=== PATIENT | female | born 1985 | race African-American/Black ===

== ENCOUNTER 2022-06-20 12:55 | Emergency (ER) | payer OTHER ==
[2022-06-20 13:31] LABS: #Basophils 0.1 10x3/uL (0.0-0.2); #Monocytes 0.5 10x3/uL (0.0-1.1); #Neutrophils 2.6 10x3/uL (1.5-8.4); %Basophils 0.7 % (0.0-2.0); %Eosinophils 13.2 % (0.0-6.0); %Lymphocytes 43.2 % (18.0-47.0); %Monocytes 7.4 % (0.0-10.0); %Neutrophils 35.4 % (40.0-75.0); Hemoglobin 12.7 g/dL (12.0-15.5); Mean Corpuscular HGB CONC 33.3 g/dL (32.0-36.0); Mean Corpuscular Hemoglobin 29.7 pg (27.0-33.0); Mean Platelet Volume 8.8 fl (7.4-10.4); Platelet Count 344 10x3/uL (150-450); RBC Distribution Width 12.8 % (11.5-14.5); Red Blood Cell (RBC) Count 4.28 10x6/uL (3.90-5.03); White Blood Cell (WBC) Count 7.3 10x3/uL (3.5-10.5)
[2022-06-20 13:46] LABS: Bilirubin Neg (Negative); Blood, Urine Negative (Negative); Clarity Clear (Clear); Glucose, Urine (Dipstick) Normal (Negative); Ketone, Urine Negative (Negative); Leukocyte Negative (Negative); Nitrite Negative (Negative); Protein, Urine (Dipstick) Negative (Neg-Trace); Urobilinogen Normal mg/dL (Less than 2)
[2022-06-20 13:48] LABS: ALT (SGPT) 15 U/L (8-55); AST (SGOT) 18 U/L (5-34); Albumin 4.4 g/dL (3.5-5.0); Alkaline Phosphatase 46 U/L (40-110); Anion Gap 11 mmol/L (10-20); BUN (Urea Nitrogen) 8 mg/dL (7.0-18.7); Bilirubin, Total 0.5 mg/dL (0.2-1.2); Calc. Creatinine Clearance 0 mL/min (70-130); Calcium 9.6 mg/dL (7.8-10.44); Carbon Dioxide 22 mmol/L (22-29); Chloride 105 mmol/L (98-107); Estimated GFR 109; Globulin 3.2 g/dL (2.4-3.5); Glucose 83 mg/dL (70-105); Lipase 27 U/L (8-78); Potassium 3.9 mmol/L (3.5-5.1); Protein, Total 7.6 g/dL (6.0-8.3); Sodium 134 mmol/L (136-145)
[2022-06-23] MEDS ORDERED: Ondansetron PF 4 MG/2 ML Vial ONE (08:30)
[2022-06-23] MEDS ORDERED: Dexamethasone 20 MG/5 ML VIAL ONE (08:31)
[2022-06-23] MEDS ORDERED: ePHEDrine Sulfate 50 MG/10 ML VIAL ONE (08:42)
[2022-06-23] MEDS ORDERED: Ketorolac Tromethamine 30 MG/ML VIAL ONE (08:44)
[2022-06-23] MEDS ORDERED: Glycopyrrolate 0.2 MG/ML 5 ML SYRINGE ONE (08:44)
== END 2022-06-20 16:38 | disposition home or self-care (01) ==
LOC: CSHERS 12:55
DX: O26.891 Other specified pregnancy related conditions, first trimester (principal); R10.12 Left upper quadrant pain; Z3A.08 8 weeks gestation of pregnancy
CPT/HCPCS: 36415; 80053; 81003; 83690; 84702; 85025; 94760

== ENCOUNTER 2022-10-12 17:41 | Emergency (ER) | payer OTHER ==
[2022-10-12 18:40] LABS: #Basophils 0.1 10x3/uL (0.0-0.2); #Eosinphils 0.2 10x3/uL (0.0-0.5); #Monocytes 0.9 10x3/uL (0.0-1.1); #Neutrophils 8.1 10x3/uL (1.5-8.4); %Basophils 0.4 % (0.0-2.0); %Eosinophils 1.4 % (0.0-6.0); %Lymphocytes 25.6 % (18.0-47.0); %Monocytes 7.4 % (0.0-10.0); %Neutrophils 64.4 % (40.0-75.0); Mean Corpuscular HGB CONC 33.8 g/dL (32.0-36.0); Mean Corpuscular Hemoglobin 31.2 pg (27.0-33.0); Mean Corpuscular Volume 92.2 fl (81.6-98.3); Platelet Count 285 10x3/uL (150-450); RBC Distribution Width 13.4 % (11.5-14.5); Red Blood Cell (RBC) Count 3.21 10x6/uL (3.90-5.03); White Blood Cell (WBC) Count 12.5 10x3/uL (3.5-10.5)
[2022-10-12 18:42] LABS: Bilirubin Neg (Negative); Blood, Urine Negative (Negative); Clarity Clear (Clear); Glucose, Urine (Dipstick) Normal (Negative); Ketone, Urine Negative (Negative); Leukocyte Negative (Negative); Nitrite Negative (Negative); Protein, Urine (Dipstick) Negative (Neg-Trace); Specific Gravity, Urine 1.015 (1.005-1.030); Urobilinogen Normal mg/dL (Less than 2)
[2022-10-12 18:49] LABS: ALT (SGPT) 21 U/L (8-55); AST (SGOT) 24 U/L (5-34); Albumin 3.2 g/dL (3.5-5.0); Alkaline Phosphatase 89 U/L (40-110); Anion Gap 11 mmol/L (10-20); BUN (Urea Nitrogen) 6 mg/dL (7.0-18.7); Bilirubin, Total 0.2 mg/dL (0.2-1.2); Calc. Creatinine Clearance 0 mL/min (70-130); Carbon Dioxide 21 mmol/L (22-29); Chloride 110 mmol/L (98-107); Estimated GFR 118; Globulin 2.9 g/dL (2.4-3.5); Glucose 90 mg/dL (70-105); Potassium 3.5 mmol/L (3.5-5.1); Protein, Total 6.1 g/dL (6.0-8.3); Sodium 138 mmol/L (136-145)
== END 2022-10-12 20:37 | disposition home or self-care (01) ==
LOC: CSHERS 17:41
DX: O99.891 Other specified diseases and conditions complicating pregnancy (principal); R60.0 Localized edema; M54.50 Low back pain, unspecified; Z3A.24 24 weeks gestation of pregnancy
CPT/HCPCS: 80053; 81003; 85025; 99283

== ENCOUNTER 2022-10-16 10:22 | Emergency (ER) | payer OTHER | END 2022-10-16 13:45 | disposition home or self-care (01) | LOC: CSHERS 10:22 | DX: O99.891 Other specified diseases and conditions complicating pregnancy (principal); R60.0 Localized edema; Z3A.24 24 weeks gestation of pregnancy | CPT/HCPCS: 93970 ==

== ENCOUNTER 2022-10-26 13:45 | Emergency (ER) | payer OTHER ==
[2022-10-26 14:16] LABS: Bilirubin Neg (Negative); Blood, Urine Negative (Negative); Clarity Clear (Clear); Glucose, Urine (Dipstick) Normal (Negative); Ketone, Urine Negative (Negative); Leukocyte 25 (Negative); Nitrite Negative (Negative); Protein, Urine (Dipstick) 15 mg/dl (Neg-Trace); Specific Gravity, Urine 1.015 (1.005-1.030); Urobilinogen Normal mg/dL (Less than 2)
[2022-10-26 14:22] LABS: #Eosinphils 0.1 10x3/uL (0.0-0.5); #Monocytes 0.7 10x3/uL (0.0-1.1); #Neutrophils 5.8 10x3/uL (1.5-8.4); %Basophils 0.4 % (0.0-2.0); %Eosinophils 1.2 % (0.0-6.0); %Lymphocytes 26.9 % (18.0-47.0); %Monocytes 7.2 % (0.0-10.0); %Neutrophils 63.5 % (40.0-75.0); Hemoglobin 10.8 g/dL (12.0-15.5); Mean Corpuscular HGB CONC 33.5 g/dL (32.0-36.0); Mean Corpuscular Hemoglobin 31.5 pg (27.0-33.0); Mean Corpuscular Volume 93.9 fl (81.6-98.3); Mean Platelet Volume 8.9 fl (7.4-10.4); Platelet Count 340 10x3/uL (150-450); RBC Distribution Width 13.2 % (11.5-14.5); Red Blood Cell (RBC) Count 3.43 10x6/uL (3.90-5.03); White Blood Cell (WBC) Count 9.1 10x3/uL (3.5-10.5)
[2022-10-26 14:29] LABS: Bacteria/HPF Rare-Few HPF (None Seen); Mucous/LPF 2+ LPF (<2+)
[2022-10-26 14:29] LABS: ALT (SGPT) 15 U/L (8-55); AST (SGOT) 18 U/L (5-34); Albumin 3.5 g/dL (3.5-5.0); Alkaline Phosphatase 116 U/L (40-110); Anion Gap 10 mmol/L (10-20); BUN (Urea Nitrogen) 7 mg/dL (7.0-18.7); Bilirubin, Total 0.2 mg/dL (0.2-1.2); Calc. Creatinine Clearance 0 mL/min (70-130); Calcium 8.9 mg/dL (7.8-10.44); Carbon Dioxide 23 mmol/L (22-29); Chloride 107 mmol/L (98-107); Estimated GFR 119; Globulin 3.2 g/dL (2.4-3.5); Glucose 56 mg/dL (70-105); Potassium 3.8 mmol/L (3.5-5.1); Protein, Total 6.7 g/dL (6.0-8.3); Sodium 136 mmol/L (136-145)
[2022-10-26] MEDS ORDERED: Metoclopramide HCl 10 MG/2 ML VIAL ONE (16:09)
[2022-10-26] MEDS ORDERED: diphenhydrAMINE 50 MG/ML VIAL ONE (16:09)
== END 2022-10-26 18:15 | disposition home or self-care (01) ==
LOC: CSHERS 13:45
DX: E16.2 Hypoglycemia, unspecified (principal); R51.9 Headache, unspecified
CPT/HCPCS: 36415; 36416; 80053; 81003; 81015; 85025; 96374; 96375; J1200; J2765

== ENCOUNTER 2022-12-30 16:57 | Day surgery (SDC) | payer OTHER ==
[2022-12-30 17:32] VITALS: BMI 26.1
[2022-12-30 18:26] LABS: Fetal Membranes Rupture No Membranes Rupture (No Rupture)
[2022-12-30 19:40] LABS: Amphetamine Not Detected (NotDetected); Barbiturates Screen Not Detected (NotDetected); Benzodiazepine Screen Not Detected (NotDetected); Cocaine Metabolite Screen Not Detected (NotDetected); Methadone Not Detected (NotDetected); Methamphetamine Not Detected (NotDetected); Opiate Screen Not Detected (NotDetected); Oxycodone Screen Not Detected (NotDetected); Phencyclidine (PCP) Not Detected (NotDetected); THC/Cannabinoid Screen Detected (NotDetected); Tricyclic Screen Not Detected (NotDetected)
[2022-12-30] MEDS ORDERED: hydrALAZINE 20 MG/ML VIAL SLOW IVP PRN (20:10)
[2022-12-30 22:20] LABS: Bilirubin Neg (Negative); Blood, Urine Negative (Negative); Clarity Clear (Clear); Glucose, Urine (Dipstick) Normal (Negative); Ketone, Urine Negative (Negative); Leukocyte Negative (Negative); Nitrite Negative (Negative); Protein, Urine (Dipstick) 15 mg/dl (Neg-Trace)
== END 2022-12-30 20:31 | disposition home or self-care (01) ==
LOC: CSHLD/OP 16:57
PROVIDERS: ATTEND Emergency Medicine
DX: O09.513 Supervision of elderly primigravida, third trimester (principal); O47.1 False labor at or after 37 completed weeks of gestation; Z03.71 Encounter for suspected problem with amniotic cavity and membrane ruled out; O99.323 Drug use complicating pregnancy, third trimester; F12.90 Cannabis use, unspecified, uncomplicated; O99.333 Smoking (tobacco) complicating pregnancy, third trimester; F17.200 Nicotine dependence, unspecified, uncomplicated; Z79.899 Other long term (current) drug therapy; Z88.5 Allergy status to narcotic agent; Z3A.37 37 weeks gestation of pregnancy
CPT/HCPCS: 80306; 81003; 84112; 87086; 87480; 87510; 87660; 99285

== ENCOUNTER 2023-01-11 19:00 | Inpatient (IN) | payer OTHER ==
[2023-01-11] MEDS ORDERED: Butorphanol Tartrate 1 MG/ML VIAL SLOW IVP PRN (19:51)
[2023-01-11] MEDS ORDERED: Ondansetron PF 4 MG/2 ML Vial IVP PRN (19:51)
[2023-01-11] MEDS ORDERED: Tranexamic Acid 1,000 MG/10 ML VIAL IVP PRN (19:51)
[2023-01-11] MEDS ORDERED: Methylergonovine 0.2 MG/ML VIAL IM PRN (19:51)
[2023-01-11] MEDS ORDERED: Misoprostol 200 MCG TAB PR PRN (19:51)
[2023-01-11] MEDS ORDERED: Carboprost 250 MCG/ML AMP IM PRN (19:51)
[2023-01-11] MEDS ORDERED: hydrALAZINE 20 MG/ML VIAL SLOW IVP PRN (19:51)
[2023-01-11] MEDS ORDERED: Acetaminophen 500 MG TAB PO PRN (19:51)
[2023-01-11] MEDS ORDERED: Promethazine HCl 25 MG/ML VIAL IM PRN (19:51)
[2023-01-11] MEDS ORDERED: Lidocaine 1% (PF) 30 ML VIAL SC PRN (19:51)
[2023-01-11] MEDS ORDERED: Lactated Ringer's 1,000 ML IV SCH (20:00)
[2023-01-11] MEDS ORDERED: NS w/ Oxytocin 30 units 500 ML IV SCH (20:00)
[2023-01-11 20:02] VITALS: BMI 25.6
[2023-01-11] MEDS ORDERED: Bupivacaine/Epinephrine 0.25% 30 ML VIAL ONE (20:24)
[2023-01-11] MEDS ORDERED: Terbutaline Sulfate 1 MG/ML VIAL ONE (20:24)
[2023-01-11] MEDS ORDERED: Bupivacaine PF 0.5% 30 ML VIAL ONE (20:24)
[2023-01-11] MEDS ORDERED: Misoprostol 100 MCG TAB VAG SCH (20:30)
[2023-01-11 20:50] LABS: Hemoglobin 11.8 g/dL (12.0-15.5); Mean Corpuscular HGB CONC 33.3 g/dL (32.0-36.0); Mean Corpuscular Hemoglobin 29.6 pg (27.0-33.0); Mean Corpuscular Volume 88.7 fl (81.6-98.3); Mean Platelet Volume 9.3 fl (7.4-10.4); Platelet Count 330 10x3/uL (150-450); RBC Distribution Width 12.9 % (11.5-14.5); Red Blood Cell (RBC) Count 3.99 10x6/uL (3.90-5.03); White Blood Cell (WBC) Count 9.2 10x3/uL (3.5-10.5)
[2023-01-11 21:55] LABS: HBSAg Index 0.12 S/CO (0-0.99); Hep B Surf Ag - L&D Non-Reactive S/CO (NonReactive)
[2023-01-11 23:00] LABS: Syphilis Antibody Index 9.95 S/CO (<1.00 Non-Reactive)
[2023-01-11 23:51] LABS: Syphilis Titer 1:8 (Reactive) (Negative)
[2023-01-11 23:55] LABS: Syphilis Antibody REACTIVE (Nonreactive)
[2023-01-12] MEDS ORDERED: Fentanyl 100 MCG/2 ML VIAL SLOW IVP SCH (00:30)
[2023-01-12] MEDS ORDERED: Misoprostol 100 MCG TAB VAG SCH (00:30)
[2023-01-12] MEDS ORDERED: Fentanyl 2 mcg/Bup 0.1% Cadd 100 ML ONE ×2 (02:06→08:23)
[2023-01-12] MEDS ORDERED: ePHEDrine Sulfate 50 MG/10 ML VIAL SLOW IVP PRN (03:07)
[2023-01-12] MEDS ORDERED: Lactated Ringer's 500 ML IV PRN (03:07)
[2023-01-12] MEDS ORDERED: Promethazine HCl 25 MG/ML VIAL IM PRN (03:07)
[2023-01-12] MEDS ORDERED: Acetaminophen 325 MG TAB PO PRN (03:07)
[2023-01-12] MEDS ORDERED: Ondansetron PF 4 MG/2 ML Vial IVP PRN (03:07)
[2023-01-12] MEDS ORDERED: Naloxone HCl 0.4 mg/ml Vial IVP PRN ×2 (03:07)
[2023-01-12] MEDS ORDERED: diphenhydrAMINE 50 MG/ML VIAL IVP PRN (03:07)
[2023-01-12] MEDS ORDERED: Moisturizing Cream (Eucerin) 113 GM JAR TOP PRN (03:07)
[2023-01-12] MEDS ORDERED: Communication Order-Pharmacy FS SCH (03:15)
[2023-01-12] MEDS ORDERED: Fentanyl 2 mcg/Bupivacaine 0.1% Cassette 100 ML EPIDURAL SCH (03:15)
[2023-01-12] MEDS ORDERED: Benzocaine-Menthol 82.5 ML CAN TOP PRN (11:27)
[2023-01-12] MEDS ORDERED: Lanolin Ointment 7 GM TUBE TOP PRN (11:27)
[2023-01-12] MEDS ORDERED: Preparation H Ointment 28 GM TUBE PR PRN (11:27)
[2023-01-12] MEDS ORDERED: Milk Of Magnesia 30 ML UDCUP PO PRN (11:27)
[2023-01-12] MEDS ORDERED: Bisacodyl 10 MG SUPP PR PRN (11:27)
[2023-01-12] MEDS ORDERED: Ibuprofen 800 MG TAB PO SCH (14:00)
[2023-01-12] MEDS ORDERED: Acetaminophen 500 MG TAB PO SCH (19:00)
[2023-01-12] MEDS ORDERED: Bicillin LA 2.4 MILL.UNITS/4 ML SYRINGE IM SCH (20:30)
[2023-01-12] MEDS: Ibuprofen 800 MG TAB PO SCH (20:52)
[2023-01-12] MEDS: Docusate 100 MG CAP PO SCH (20:52)
[2023-01-13] MEDS: Ibuprofen 800 MG TAB PO SCH ×3 (05:12→23:22)
[2023-01-13] MEDS: Prenatal Vitamin 1 TAB PO SCH (09:48)
[2023-01-13] MEDS: Docusate 100 MG CAP PO SCH ×2 (09:48→23:22)
[2023-01-13] MEDS: Ferrous Sulfate 325 MG TAB PO SCH (09:48)
[2023-01-14] MEDS: Ibuprofen 800 MG TAB PO SCH ×2 (05:30→14:10)
[2023-01-14] MEDS: Docusate 100 MG CAP PO SCH (08:49)
[2023-01-14] MEDS: Prenatal Vitamin 1 TAB PO SCH (08:49)
[2023-01-14] MEDS: Ferrous Sulfate 325 MG TAB PO SCH (08:50)
[2023-01-14 09:27] VITALS: BP 123/66; TEMP 98
== END 2023-01-14 18:40 | disposition home or self-care (01) | DRG 806 ==
LOC: CSHLD 19:20 → CSHPP 01-12 11:55
PROVIDERS: ADMIT Family Medicine; ATTEND Family Medicine
PROC: 10E0XZZ Delivery of Products of Conception, External Approach (ICD-10-PCS; principal; 2023-01-12)
PROC: 0KQM0ZZ Repair Perineum Muscle, Open Approach (ICD-10-PCS; 2023-01-12)
DX: O99.344 Other mental disorders complicating childbirth (principal); O98.12 Syphilis complicating childbirth; Z37.0 Single live birth; O99.354 Diseases of the nervous system complicating childbirth; A53.0 Latent syphilis, unspecified as early or late; F32.A Depression, unspecified; F41.9 Anxiety disorder, unspecified; F17.290 Nicotine dependence, other tobacco product, uncomplicated; O99.334 Smoking (tobacco) complicating childbirth; O76 Abnormality in fetal heart rate and rhythm complicating labor and delivery; O69.81X0 Labor and delivery complicated by cord around neck, without compression, not applicable or unspecified; O70.1 Second degree perineal laceration during delivery; O71.82 Other specified trauma to perineum and vulva; R07.89 Other chest pain; O99.893 Other specified diseases and conditions complicating puerperium; Z3A.39 39 weeks gestation of pregnancy; Z88.5 Allergy status to narcotic agent; Z88.6 Allergy status to analgesic agent; Z79.899 Other long term (current) drug therapy; G40.909 Epilepsy, unspecified, not intractable, without status epilepticus
CPT/HCPCS: 36415; 51702; 71045; 84484; 85027; 86593; 86780; 86850; 86900; 86901; 87340; 93005; 93010; J0561; J2590; J3010; J3105; J7120; S0020